=== PATIENT | female | born 1975 | race Caucasian/White ===

== ENCOUNTER 2018-06-18 00:18 | Emergency (ER) | payer OTHER ==
[~2018-06-18] VITALS: Ht 152.4 cm; Wt 72.7 kg
[2018-06-18 01:20] LABS: INFLUENZA TYPE A POSITIVE FOR TYPE A (NEGATIVE); INFLUENZA TYPE B NEGATIVE FOR TYPE B (NEGATIVE)
[2018-06-18] MEDS ORDERED: ACETAMINOPHEN 500 MG TABLET PO ONE (02:30)
[2018-06-18] MEDS ORDERED: IBUPROFEN 600 MG TABLET PO ONE (02:30)
[2018-06-18 02:49] VITALS: BP 120/72
== END 2018-06-18 02:52 | disposition home or self-care (01) ==
LOC: EMS 00:22
DX: J06.9 Acute upper respiratory infection, unspecified (principal); J09.X2 Influenza due to identified novel influenza A virus with other respiratory manifestations; M79.10 Myalgia, unspecified site
CPT/HCPCS: 87804